=== PATIENT | female | born 1985 ===

== ENCOUNTER 2024-01-07 12:45 | Outpatient (REF) | payer SELFPAY ==
[2024-01-07 14:40] LABS: HCT 43.5 % (36.0-46.0); MCH 33.9 pg (27.0-33.0); MCHC 34.5 % (32.0-36.0); MCV 98 fL (80-95); MPV 12.1 fL (8.0-11.0); Platelet Count 185 10^3/uL (130-400); RBC 4.43 10^6/uL (3.93-5.22); RDW 12.5 % (11.7-14.6); RDW-SD 45.6 fL; WBC 4.04 10^3/uL (4.4-10.8)
[2024-01-07 16:41] LABS: ALT 34 U/L (14-59); AST 34 U/L (15-37); Alkaline Phosphatase 61 U/L (46-116); Anion Gap 11.2 mmol/L (3-11); BUN 13 mg/dL (7-18); Bilirubin, Total 2.6 mg/dL (0.2-1.0); CO2 26.8 mmol/L (21.0-32.0); CREATININE 1.2 mg/dL (0.55-1.02); Calcium 9.6 mg/dL (8.5-10.1); Calculated LDL 291 mg/dL (<100); Chloride 101 mmol/L (98-107); Cholesterol 383 mg/dL (<200); Estimated GFR 60.16 (mL/min/1.73m2); Glucose 88 mg/dL (74-106); HDL Cholesterol 75 mg/dL (40-60); Potassium 3.8 mmol/L (3.5-5.1); Sodium 139 mmol/L (136-145); TSH 137.55 uIU/Ml (0.36-3.74); Total Protein 8.6 g/dL (6.4-8.2); Triglyceride 87 mg/dL (<150)
[2024-01-07 17:01] LABS: FREE T4 0.38 ng/dL (0.76-1.46)
== END 2024-01-07 12:46 | disposition home or self-care (01) ==
LOC: NCHCN 12:45
PROVIDERS: PCP Nurse Practitioner Family; Visit Provider Family Medicine
DX: Z13.220 Encounter for screening for lipoid disorders (principal); E03.9 Hypothyroidism, unspecified; Z13.0 Encounter for screening for diseases of the blood and blood-forming organs and certain disorders involving the immune mechanism; E66.3 Overweight
CPT/HCPCS: 80053; 80061; 85027; 84439; 84443

== ENCOUNTER 2024-02-23 17:08 | Outpatient (REF) | payer SELFPAY ==
[2024-02-23 16:34] LABS: TSH 0.88 uIU/Ml (0.36-3.74)
== END 2024-02-23 17:09 | disposition home or self-care (01) ==
LOC: NCHCN 17:08
PROVIDERS: PCP Nurse Practitioner Family; Visit Provider Family Medicine
DX: E03.9 Hypothyroidism, unspecified (principal)
CPT/HCPCS: 84443

== ENCOUNTER 2024-04-26 15:23 | Outpatient (REF) | payer SELFPAY ==
[2024-04-26 15:17] LABS: Calculated LDL 57 mg/dL (<100); Cholesterol 160 mg/dL (<200); HDL Cholesterol 97 mg/dL (40-60); TSH 16.18 uIU/Ml (0.36-3.74); Triglyceride 31 mg/dL (<150); Vitamin D 25 Total 44.5 ng/mL (30-100)
== END 2024-04-26 15:24 | disposition home or self-care (01) ==
LOC: NCHCN 15:23
PROVIDERS: PCP Nurse Practitioner Family; Visit Provider Family Medicine
DX: E78.5 Hyperlipidemia, unspecified (principal); E03.9 Hypothyroidism, unspecified; R53.83 Other fatigue
CPT/HCPCS: 80061; 82306; 84443

== ENCOUNTER 2024-06-21 23:59 | Outpatient (REF) | payer SELFPAY | END 2024-06-22 | disposition home or self-care (01) | LOC: NCHCN 23:59 | PROVIDERS: PCP Nurse Practitioner Family; Visit Provider Family Medicine | DX: E03.9 Hypothyroidism, unspecified (principal) | CPT/HCPCS: 84443 ==

== ENCOUNTER 2024-07-22 15:00 | Outpatient (REF) | payer SELFPAY ==
--- NOTE | 2024-07-22 08:00 | PAPFT_PTH ---
PATIENT: Nora Steven LOC: [facility]#:[id number] AGE/SX: 39/F ROOM: RE07/22/[address]: RAJ: 1985 BED: DIS: 07/22/2024 SPEC #: [id number] RECD: 07/25/24 18:14 STATUS: CORNELL JASMINE #: [id number] JAKE: 07/22/24 08:[address]: Karla Ruiz DEPT: [facility] Cytology RECD BY: Maryuri Tatum ENTERED: 07/25/24 18:14 SP TYPE: PAPFT OTHR DR: Nayeli Perez Tissues: 1 - CX/ENDOCX FOR PAP SMEARS Procedures: PAP THIN PREP/[facility] Screening HPV DNA PROBE Comments: [id number] (HPV 16 7 18/45)
== END 2024-07-22 15:01 | disposition home or self-care (01) ==
LOC: NCHCN 15:00
PROVIDERS: PCP Nurse Practitioner Family; Visit Provider Family Medicine
DX: Z11.51 Encounter for screening for human papillomavirus (HPV) (principal); Z01.419 Encounter for gynecological examination (general) (routine) without abnormal findings
CPT/HCPCS: 88142; 87624